=== PATIENT | male | born 1960 | race Caucasian/White ===

== ENCOUNTER 2018-02-17 17:18 | Emergency (ER) | payer OTHER ==
[~2018-02-17] VITALS: Ht 172.7 cm; Wt 68.0 kg
--- NOTE | 2018-02-17 17:18 | NUR ---
Arrival Pt. arrives at ER via EMS. EMS states that pt was found on the floor when they arrived and pt kept trying to get up but was to weak. When on the ambulance, EMS states that his pulse was in he low 40s so they administered Atropine. Pt is talking and trying to tell us what was going on but at this time it is hard to understand. At this time pt. vital are stable. Pt is oriented to person, place and time. Pt. is laying on gurney at this time in stable condition
[2018-02-17] MEDS ORDERED: LORAZEPAM IV STA (17:28)
[2018-02-17] MEDS ORDERED: MYLANTA PO STA (17:28)
[2018-02-17] MEDS ORDERED: LIDOCAINE VISCOUS MM STA (17:28)
[2018-02-17] MEDS ORDERED: BENTYL LIQUID PO PRN (17:30)
--- NOTE | 2018-02-17 17:34 | ER.PDOC ---
General Chief Complaint: Requesting Medical Care Stated Complaint: SYNCOPE Time seen by MD: 17:20 Source: patient, EMS Exam Limitations: clinical condition History of Present Illness Initial Comments Pt was found unresponsive on street, he was hypotensive and bradycardic, he was given atropine and pulse went up to 60's Timing/Duration: 1 hour Character of AMS: decreased responsiveness Usually: orientedx3 Decreased Ability to Stand: weak Allergies: Coded Allergies: morphine (Verified Allergy, Unknown, 02/17/18) Review of Systems Constitutional: no symptoms reported Eyes: no symptoms reported Ears, Nose, Mouth, Throat: no symptoms reported Respiratory: no symptoms reported Cardiovascular: no symptoms reported Gastrointestinal: abdominal pain Genitourinary: no symptoms reported Musculoskeletal: no symptoms reported Skin: no symptoms reported Psychiatric/Neurological: see HPI Endocrine: no symptoms reported Hematologic/Lymphatic: no symptoms reported Physical Exam General Appearance: alert, no distress HEENT: no apparent trauma, EOM's intact, no nystagmus, PERRL, ENT inspection nml, pharynx nml, airway intact, oral exam nml Neuro/Psych: oriented x3, nml mood/affect, other (slow response to questions, although oriented x 3) Cranial Nerves: nml as tested Cerebellar: nml as tested Peripheral Exam: motor nml, sensation nml, reflexes nml Neck: supple, non-tender, no carotid bruit Respiratory: no resp distress, breath sounds nml CVS: reg rate & rhythm, heart sounds nml Abdomen: non-tender, no organomegaly, no distention Skin: color nml, no rash, other (cold) Extremities: non-tender, nml ROM, no pedal edema Results/Orders Results/Orders Laboratory Tests Test 02/17/18 17:50 02/17/18 18:55 White Blood Count 9.9 10^3/uL (4.5-11.0) Red Blood Count 4.82 10^6/uL (4.50-5.90) Hemoglobin 15.1 g/dL (13.9-16.3) Hematocrit 43.9 % (37.0-53.0) Mean Corpuscular Volume 91.1 fL (78-100) Mean Corpuscular Hemoglobin 31.3 pg (26-34) Mean Corpuscular Hemoglobin Concent 34.4 g/dL (33-37) Red Cell Distribution Width 14.1 % (11.5-14.5) Platelet Count 378 10^3/uL (150-400) Mean Platelet Volume 8.7 fL (7.8-11.0) Neutrophils (%) (Auto) 55.3 % (41.0-85.0) Lymphocytes (%) (Auto) 31.0 % (24.0-44.0) Monocytes (%) (Auto) 9.2 % (5.0-12.0) Neutrophils # (Auto) 5.5 10^3/uL (1.8-7.7) Lymphocytes # (Auto) 3.1 10^3/uL (1.0-4.8) Monocytes # (Auto) 0.9 10^3/uL (0.3-0.8) Absolute Immature Granulocyte (auto 0.02 10^3 u/L (0-2) Eosinophils % 4.0 % (0.0-5.0) Basophils % 0.3 % (0.0-0.2) Basophils # 0.0 10^3/uL (0.0-0.1) Eosinophil Count 0.4 10^3/uL (0.0-0.2) Prothrombin Time 9.8 SEC (9.8-11.9) Prothrombin Time INR (Non-Therap) 1.0 Activated Partial Thromboplast Time 21.1 SEC (24.67-30.72) Sodium Level 140 mmol/L (132-145) Potassium Level 4.3 mmol/L (3.6-5.2) Chloride Level 105.0 mmol/L (96-109) Carbon Dioxide Level 28.5 mmol/L (20.0-32) Anion Gap 10.8 Blood Urea Nitrogen 16 mg/dL (7-18) Creatinine 1.17 mg/dL (0.59-1.40) Estimated GFR () 78.3 (>/=60) BUN/Creatinine Ratio 13.0 Glucose Level 107 mg/dL (70-110) Calcium Level 8.3 mg/dL (8.4-10.5) Total Bilirubin 0.2 mg/dL (0.2-1.0) Aspartate Amino Transf (AST/SGOT) 22 U/L (0-35) Alanine Aminotransferase (ALT/SGPT) 50 U/L (12-78) Alkaline Phosphatase 94 U/L (50-136) Total Creatine Kinase 96 U/L (39-308) Creatine Kinase MB 0.9 ng/mL (0.5-3.6) Troponin I < 0.02 ng/mL (0.00-0.05) Pro-B-Type Natriuretic Peptide 122 pg/mL (0-125) Total Protein 6.8 g/dL (6.4-8.2) Albumin 3.2 g/dL (3.4-5.0) Globulin 3.6 Serum Alcohol < 3 mg/dL (3-50) Percent Immature Gran (Cell Imm) 0.20 % (0.00-0.50) Urine Collection Type VOID Urine Color YELLOW (YELLOW) Urine Appearance CLEAR (CLEAR) Urine Bilirubin NEGATIVE MG/DL (NEGATIVE) Urine Ketones NEGATIVE (NEGATIVE) Urine Specific [place] 1.010 (1.005-1.035) Urine pH 6 (5.0-6.0) Urine Protein NEGATIVE (NEGATIVE) Urine Urobilinogen NORMAL (NEGATIVE) Urine Nitrate NEGATIVE (NEGATAIVE) Urine Leukocyte Esterase NEGATIVE (NEGATIVE) Urine Blood NEGATIVE (NEGATIVE) Urine Glucose NORMAL (NEGATIVE) Urine Opiates, Qualitative NEGATIVE ng/mL (CUT-OFF:300) Urine Methadone, Qualitative NEGATIVE ng/mL (CUT-OFF:300) Urine Amphetamine Qualitative NEGATIVE ng/mL (CUTOFF:1000) Urine Barbiturates, Qualitative NEGATIVE ng/mL (CUT-OFF:200) Urine Phencyclidine Screen NEGATIVE ng/mL (CUT-OFF:25) Urine MDMA (Ecstasy), Qualitative NEGATIVE ng/mL (CUT-OFF:300) Urine Benzodiazepines Screen NEGATIVE ng/mL (CUT-OFF:200) Urine Cocaine Qualitative NEGATIVE ng/mL (CUT-OFF:300) Ur Tetrahydrocannabinol (THC) Scrn NEGATIVE ng/mL (CUT-OFF:50) Administered Medications Medications (Trade) Dose Ordered Sig/Mariluz Route PRN Reason Start Time Stop Time Status Last Admin Dose Admin Dicyclomine HCl (Bentyl Liquid) 10 mg Q6H PRN PO PAIN 02/17/18 17:30 03/19/18 17:29 02/17/18 19:16 Lidocaine HCl (Lidocaine Viscous) 10 ml STAT STAT MM 02/17/18 17:28 02/17/18 17:31 DC 02/17/18 19:16 Lorazepam (Lorazepam) 1 mg STAT STAT IV 02/17/18 17:28 02/17/18 17:31 DC 02/17/18 19:15 Progress Progress Patient feeling better after hydration. Blood pressure up to 159/78 EKG/XRAY/CT/US EKG Comments: Sinus bradycardia XRAY: chest (No active disease) CT Comments: Nothing acute intracranially Departure Time of Disposition: 19:39 Disposition: 01 HOME, SELF-CARE Impression: Primary Impression: Hypotension Additional Impression: Syncope and collapse Condition: Improved Additional Instructions: F/U with your PCP in 2 days Duration or Time Spent with Pa: 90 mins Problem Qualifiers Primary Impression: Hypotension Hypotension type: unspecified hypotension type Qualified Codes: I95.9 - Hypotension, unspecified SHELL PYLE MD Feb 17, 2018 17:34 JACOB REYNA MD Feb 17, 2018 19:42
--- NOTE | 2018-02-17 17:37 | PCM.EKG ---
[facility] Test Date: 2018-02-17 Test Time: 17:41:56 Pat Name: SANDIE MARTIN Department: Patient ID: [facility]-[id number] Room: Gender: M Chef De Froid: FAHAD : 1960 Requested By: FEDERICO WASHINGTON Order Number: [id number] Reading MD: Federico Washington Measurements Intervals [place] Rate: 56 P: 77 AR: 158 QRS: 93 QRSD: 72 T: 25 QT: 450 QTc: 434 Interpretive Statements Sinus bradycardia Otherwise normal ECG No previous ECG available for comparison Electronically Signed On 02-18-2018 22:54:16 CDT by Federico Washington Please click the below link to view image of tracing.
[2018-02-17 18:00] LABS: BASOPHIL % 0.3 % (0.0-0.2); EOSINOPHIL # 0.4 10^3/uL (0.0-0.2); HEMOGLOBIN 15.1 g/dL (13.9-16.3); LYMPHOCYTES # 3.1 10^3/uL (1.0-4.8); MEAN CELL HGB 31.3 pg (26-34); MEAN CELL HGB CONCENTRATION 34.4 g/dL (33-37); MEAN CORP VOLUME 91.1 fL (78-100); MEAN PLATELET VOLUME 8.7 fL (7.8-11.0); MONOCYTES # 0.9 10^3/uL (0.3-0.8); MONOCYTES % 9.2 % (5.0-12.0); NEUTROPHIL # 5.5 10^3/uL (1.8-7.7); NEUTROPHILS % 55.3 % (41.0-85.0); RED CELL DISTRIBUTION WIDTH 14.1 % (11.5-14.5); WHITE BLOOD CELL 9.9 10^3/uL (4.5-11.0)
[2018-02-17 18:14] VITALS: BP 144/61
[2018-02-17 18:26] LABS: ALANINE AMINOTRANSFERASE(ML) 50 U/L (12-78); ALKALINE PHOSPHATASE 94 U/L (50-136); ASPARTATE AMINO TRANSFERASE 22 U/L (0-35); CALCIUM 8.3 mg/dL (8.4-10.5); CARBON DIOXIDE 28.5 mmol/L (20.0-32); GLUCOSE 107 mg/dL (70-110)
--- NOTE | 2018-02-17 18:34 | DIREP ---
PROCEDURE:CT HEAD OR BRAIN W/O CONTRAST COMPARISON:[facility], CT, CT HEAD BRAIN W/O CONTRAST, 10/29/2015, 03:30 PM. INDICATIONS:AMS TECHNIQUE:CT images were created without intravenous contrast. FINDINGS: VENTRICLES: Negative. CEREBRUM: Negative. CEREBELLUM: Negative. BRAINSTEM: Negative. BASAL CISTERNS: Negative. SKULL: Negative. SINUSES: Negative. OTHER: None. CONCLUSION: 1. There is no CT evidence of intracranial mass, hemorrhage, or acute infarct. Dictated by: Ryne Christopher M.D. on 02/17/2018 at 06:32 PM
[2018-02-17] MEDS ORDERED: ATIVAN ONE (18:56)
[2018-02-17] MEDS ORDERED: MYLANTA ONE (18:56)
[2018-02-17] MEDS ORDERED: LIDOCAINE VISCOUS ONE (18:56)
--- NOTE | 2018-02-17 18:57 | DIREP ---
PROCEDURE:CHEST 1 VIEW COMPARISON:[facility], CR, CHEST 1 VIEW, 10/29/2015, 03:04 PM. INDICATIONS:bradycardia FINDINGS: LUNGS/PLEURA:Lungs are clear of focal consolidation. No evidence of pleural effusion. VASCULATURE:Unremarkable pulmonary vasculature. CARDIAC:No cardiac silhouette abnormality or cardiomegaly. LUZ ELENA/MEDIASTINUM:No visible mass or adenopathy. BONES:No acute fracture. OTHER:No additional findings. CONCLUSION: 1. No acute cardiopulmonary changes. Dictated by: Ryne Christopher M.D. on 02/17/2018 at 06:55 PM
[2018-02-17] MEDS ORDERED: BENTYL LIQUID ONE (18:58)
[2018-02-17 19:04] LABS: BILIRUBIN,URINE NEGATIVE (NEGATIVE); UROBILINOGEN,URINE NORMAL (NEGATIVE)
[2018-02-17 19:08] LABS: APPEARANCE,URINE CLEAR (CLEAR); UA COLOR YELLOW (YELLOW)
[2018-02-17 19:40] VITALS: BP 136/72
[2018-02-17 19:56] VITALS: BP 144/61
== END 2018-02-17 19:51 | disposition home or self-care (01) ==
LOC: ER 17:18 → EDUNIT# 17:18 → EDBD 17:18 → ER 19:51
DX: I95.9 Hypotension, unspecified (principal); R55 Syncope and collapse; Z88.5 Allergy status to narcotic agent
CPT/HCPCS: 36415; 70450; 71045; 80053; 80307; 81002; 82550; 82553; 83880; 84484; 85025; 85610; 85730; 93005; 96374; 99285; A4338 ×2; G0481; J2060; J3490